=== PATIENT | female | born 1940 | race Caucasian/White ===

== ENCOUNTER 2017-05-07 06:13 | Emergency (ER) | payer OTHER ==
[~2017-05-07] VITALS: Ht 152.4 cm; Wt 69.4 kg
[2017-05-07 06:22] VITALS: BP 114/76; PULSE 70; RESP 18; TEMP 97.5; O2SAT 96
[2017-05-07 06:45] LABS: BILIRUBIN,URINE NEGATIVE (NEGATIVE); BLOOD, URINE 2+ (NEGATIVE); COLOR,URINE YELLOW (YELLOW); GLUCOSE,URINE NEGATIVE (NEGATIVE); KETONES,URINE NEGATIVE (NEGATIVE); LEUKOCYTE ESTERASE ,URINE 3+ (NEGATIVE); NITRITE, URINE NEGATIVE (NEGATIVE); PROTEIN URINE 2+ (NEGATIVE); UROBILINOGEN,URINE 0.2 (0.2-1.0)
[2017-05-07 06:46] LABS: CLARITY/URINE CLOUDY (CLEAR)
[2017-05-07 06:54] LABS: BACTERIA,URINE FEW /HPF (None Seen); MUCUS,URINE 1+ /LPF (None Seen); WBC,URINE >100 /HPF (0-3)
[2017-05-07 07:04] VITALS: BP 112/72; PULSE 72; RESP 16; TEMP 97.5; O2SAT 97
== END 2017-05-07 07:04 | disposition home or self-care (01) ==
LOC: SED 06:13 → EDBD 06:13 → SED 07:04
DX: N39.0 Urinary tract infection, site not specified (principal)
CPT/HCPCS: 81000-TC; 87086; 87186-TC; 99284

== ENCOUNTER 2017-07-18 18:28 | Emergency (ER) | payer OTHER ==
[~2017-07-18] VITALS: Ht 152.4 cm; Wt 69.4 kg
[2017-07-18 18:40] VITALS: BP_SYST 124
--- NOTE | 2017-07-18 18:49 | NUR ---
Patient to ER bed 08 to gown for evaluation. Side rails up. Report given to JOSEF DOMINIQUE
--- NOTE | 2017-07-18 18:55 | NUR ---
Pt brought by self, A&O x4, pt c/o R heel pain after walking for long time, skin pink and warm, cap refill <3,no trauma or open areas noted.
--- NOTE | 2017-07-18 19:00 | NUR ---
ER at bedside examining patient.
--- NOTE | 2017-07-18 20:00 | NUR ---
Kiok colin in ED - 07/18/17 at 2033 by SDEDWLA NADIA Ayers at bedside examining patient.
[2017-07-18 20:31] VITALS: BP_SYST 132
--- NOTE | 2017-07-18 20:34 | NUR ---
Patient given written and verbal discharge instructions and verbalizes understanding. ER MD discussed with patient the results and treatment provided. Patient in stable condition. ID arm band removed. Rx of tramadol given. Patient educated on pain management and to follow up with PMD. Pain Scale 0/10. Opportunity for questions provided and answered.
== END 2017-07-18 20:31 | disposition home or self-care (01) ==
LOC: SED 18:28
DX: M72.2 Plantar fascial fibromatosis (principal)
CPT/HCPCS: 99284

== ENCOUNTER 2018-12-16 03:47 | Emergency (ER) | payer OTHER ==
[~2018-12-16] VITALS: Ht 152.4 cm; Wt 70.3 kg
--- NOTE | 2018-12-16 03:54 | NUR ---
Patient to ER bed 5 to gown for evaluation. Side rails up.
[2018-12-16 03:55] VITALS: BP_SYST 120
--- NOTE | 2018-12-16 04:00 | NUR ---
Pt came in complaining of dysuria frequency and severe urgency. Reports that she had urinary tract infections in the past and felt like this is one. Reports that symptoms started 2 days ago. Denies n/v/d or fever. No other complaints/injuries noted. Will cont. to monitor.
--- NOTE | 2018-12-16 04:05 | NUR ---
ER at bedside examining patient.
[2018-12-16] MEDS ORDERED: PHENAZOPYRIDINE HCL 100 MG TABLET PO ONE (04:15)
[2018-12-16] MEDS ORDERED: PHENAZOPYRIDINE HCL 100 MG TABLET ONE (04:29)
[2018-12-16 04:45] LABS: BILIRUBIN,URINE NEGATIVE (NEGATIVE); BLOOD, URINE 3+ (NEGATIVE); CLARITY/URINE CLOUDY (CLEAR); COLOR,URINE YELLOW (YELLOW); GLUCOSE,URINE NEGATIVE (NEGATIVE); KETONES,URINE NEGATIVE (NEGATIVE); LEUKOCYTE ESTERASE ,URINE 3+ (NEGATIVE); NITRITE, URINE POSITIVE (NEGATIVE); PROTEIN URINE 3+ (NEGATIVE)
[2018-12-16 04:49] LABS: BACTERIA,URINE MANY /HPF (None Seen); RBC,URINE >100 /HPF (0-3); WBC,URINE >100 /HPF (0-3); YEAST,URINE Moderate /HPF (None Seen)
[2018-12-16 05:00] VITALS: BP_SYST 120
--- NOTE | 2018-12-16 05:00 | NUR ---
Patient given written and verbal discharge instructions and verbalizes understanding. ER MD Dr. Alvarado discussed with patient the results and treatment provided. Patient in stable condition. ID arm band removed. Rx of pyridium and keflex given. Patient educated on pain management and to follow up with PMD. Pain Scale 0/10. Opportunity for questions provided and answered. Medication side effect fact sheet provided.
--- NOTE | 2018-12-18 15:59 | NUR ---
Final C & S report was reviewed by Dr. Castrejon who recommended clinical correlation with patients symptoms. Patient reported partial improvement of symptoms. Dr. Castrejon ordered change in Rx to Mcarobid 100mg PO Bid x 7days. [facility].
== END 2018-12-16 05:00 | disposition home or self-care (01) ==
LOC: SED 03:47
DX: N39.0 Urinary tract infection, site not specified (principal); Z88.6 Allergy status to analgesic agent
CPT/HCPCS: 81000-TC; 82962; 87086; 87186-TC; 99283

== ENCOUNTER 2019-06-22 11:16 | Emergency (ER) | payer OTHER ==
[~2019-06-22] VITALS: Ht 152.4 cm; Wt 68.9 kg
[2019-06-22 11:31] VITALS: BP_SYST 119
[2019-06-22] MEDS ORDERED: LIDOCAINE 1% 10 MG/ML, 20 ML MDV INJ ONE (12:00)
[2019-06-22] MEDS ORDERED: DIPH-TET-PERTUS Vaccine 0.5 ML VIAL (ADACEL) I.M. ONE (12:00)
[2019-06-22] MEDS ORDERED: BACITRACIN 1 GM OINT TP ONE (12:00)
[2019-06-22 13:55] VITALS: BP_SYST 119
== END 2019-06-22 13:55 | disposition home or self-care (01) ==
LOC: SED 11:16
DX: S91.115A Laceration without foreign body of left lesser toe(s) without damage to nail, initial encounter (principal); Z88.5 Allergy status to narcotic agent; W45.0XXA Nail entering through skin, initial encounter; Y93.89 Activity, other specified; Y92.89 Other specified places as the place of occurrence of the external cause; Y99.8 Other external cause status
CPT/HCPCS: 12001; 90471; 90715; 99283; J2001

== ENCOUNTER 2019-09-06 14:35 | Outpatient (CLI) | payer OTHER | END 2019-09-06 20:28 | disposition home or self-care (01) | LOC: SRD 14:35 | PROVIDERS: ATTEND Family Medicine | DX: I51.7 Cardiomegaly (principal); R04.2 Hemoptysis | CPT/HCPCS: 71046-TC ==

== ENCOUNTER 2019-12-01 18:15 | Emergency (ER) | payer OTHER ==
[~2019-12-01] VITALS: Ht 154.9 cm; Wt 67.1 kg
[2019-12-01 18:31] VITALS: BP_SYST 114
[2019-12-01 19:34] VITALS: BP_SYST 114
== END 2019-12-01 19:33 | disposition home or self-care (01) ==
LOC: SED 18:15
DX: S91.114A Laceration without foreign body of right lesser toe(s) without damage to nail, initial encounter (principal); I10 Essential (primary) hypertension; E11.9 Type 2 diabetes mellitus without complications; Z88.6 Allergy status to analgesic agent; Z95.0 Presence of cardiac pacemaker; W45.8XXA Other foreign body or object entering through skin, initial encounter; Y93.89 Activity, other specified; Y92.89 Other specified places as the place of occurrence of the external cause; Y99.8 Other external cause status
CPT/HCPCS: 99282

== ENCOUNTER 2019-12-06 11:44 | Emergency (ER) | payer OTHER ==
[~2019-12-06] VITALS: Ht 154.9 cm; Wt 69.9 kg
[2019-12-06 11:45] VITALS: BP_SYST 125
--- NOTE | 2019-12-06 11:55 | NUR ---
Patient to ER bed 06 to gown for evaluation. Side rails up.
--- NOTE | 2019-12-06 12:02 | NUR ---
Pt. presented to the ED ambulatory. She is alert and VSS. Pt. is here for suture removal on right toe.
--- NOTE | 2019-12-06 12:10 | NUR ---
Report given to JOSEF Shaw for continuation of care.
--- NOTE | 2019-12-06 12:15 | NUR ---
Dr. Ramírez at bedside examining pt.
--- NOTE | 2019-12-06 12:15 | NUR ---
Kiko colin in [facility] - 12/06/19 at [email or web address] Ramírez at bedside examining patient
[2019-12-06 12:40] VITALS: BP_SYST 125
--- NOTE | 2019-12-06 12:49 | NUR ---
Patient given written and verbal discharge instructions and verbalizes understanding. ER MD discussed with patient the results and treatment provided. Patient in stable condition. ID arm band removed. Patient educated on pain management and to follow up with PMD. Pain Scale 0/10. Opportunity for questions provided and answered.
== END 2019-12-06 12:40 | disposition home or self-care (01) ==
LOC: SED 11:44
DX: Z48.02 Encounter for removal of sutures (principal)
CPT/HCPCS: 99281

== ENCOUNTER 2020-06-03 13:35 | Outpatient (CLI) | payer OTHER | END 2020-06-03 20:06 | disposition home or self-care (01) | LOC: SUS 13:35 | PROVIDERS: ATTEND Family Medicine | DX: E11.9 Type 2 diabetes mellitus without complications (principal) | CPT/HCPCS: 76770 ==